=== PATIENT | female | born 1960 | race Caucasian/White ===

== ENCOUNTER 2016-11-23 10:22 | Emergency (ER) | payer MEDICAID, OTHER ==
[~2016-11-23] VITALS: Wt 72.7 kg
[2016-11-23] MEDS ORDERED: POLY10DR19 RIGHT EYE (10:59)
[2016-11-23] MEDS ORDERED: BEN25 PO (10:59)
[2016-11-23] MEDS ORDERED: FLUORESCEIN STRIP RIGHT EYE ONE (11:00)
[2016-11-23] MEDS ORDERED: TETRACAINE 0.5% 4 ML OPH RIGHT EYE ONE (11:00)
[2016-11-23 11:51] VITALS: BP 115/78; PULSE 78; RESP 18; TEMP 98.6
--- NOTE | 2016-11-23 12:24 | ERD ---
ER Documentation Chief Complaint Date/Time DATE: 11/23/16 TIME: 12:19 Chief Complaint SUDDEN R. EYE REDNESS AND SWELLING W BLURRY VISION HPI 55-year-old female comes emergency room department with right eye redness, swelling started approximately 30 minutes ago. She reports that this morning she was sitting on her couch watching television she felt pressure-like pain in her eye. She states that there is mild blurred vision, however no diplopia, no visual field deficits. She denies any curtain effect or visual disturbances. Patient does report that she was straining, her bowel movement 2 hours ago. She denies trauma. She denies foreign body entrance or foreign body sensation. ROS All systems reviewed and are negative except as per history of present illness. Medications Home Meds Active Scripts Diphenhydramine Hcl* (Benadryl*) 25 Mg Cap, 25 MG PO Q6, #30 CAP Prov:ANNMARIE WALKER PA-C 11/23/16 Polymyxin B Sulfate-TMP* (Polymyxin B-TMP Eye Drops*) 10 Ml Drops, 1 DROP RIGHT EYE QID for 7 Days, EA Prov:ANNMARIE WALKER PA-C 11/23/16 Allergies Allergies: Coded Allergies: No Known Allergy (Unverified , 11/23/16) PMhx/Soc History of Surgery: Yes (Ovarian tumor removal) Anesthesia Reaction: No Hx Neurological Disorder: No Hx Respiratory Disorders: No Hx Cardiac Disorders: No Hx Psychiatric Problems: No Hx Miscellaneous Medical Probl: No Hx Alcohol Use: No Hx Substance Use: No Hx Tobacco Use: No Smoking Status: Never smoker Physical Exam Vitals Vital Signs Date Time Temp Pulse Resp B/P Pulse Ox O2 Delivery O2 Flow Rate FiO2 11/23/16 11:51 98.6 78 18 115/78 98 Room Air 11/23/16 10:24 97.0 77 20 154/71 99 Physical Exam General: Well-developed, well-nourished. The patient appears in no acute distress. HEENT: Head is normocephalic, atraumatic. No scleral icterus. Eye Exam: Visual Acuity: 20/50, 20/40, 20/40 Visual Malin: Intact in all four quadrants bilaterally Lac ducts/glands: No swelling Lids w/ evertion: Normal, no foreign body Conj/Celestine: Ecchymosis of approximately 40% of the inferior aspect of the conjunctiva, there is injection, subconjunctival hemorrhage. Anterior Chamber: Clear Tonopen readings: 22, 27 Neck: Supple. Nontender. Lungs: Clear to auscultation. Normal air movement. Heart: Regular rate and rhythm. S1 and S2 are normal. No murmurs, gallops, or rubs. Abdomen: Nondistended. Extremities: No clubbing or cyanosis. Moving extremities x 4. No weakness. Neurologic: Alert and oriented 3. No focal deficits. Normal speech and gait. Skin: Normal turgor. No rash or lesions. Results 24 hrs Current Medications Medications (Trade) Dose Ordered Sig/Ashwini Route PRN Reason Start Time Stop Time Status Last Admin Dose Admin Tetracaine HCl (Tetracaine 0.5% Steri-Unit Kay) 1 drop ONCE ONCE RIGHT EYE 11/23/16 11:00 11/23/16 11:01 DC Fluorescein Sodium (Adlpy-Z-Yslda) 1 strip ONCE ONCE RIGHT EYE 11/23/16 11:00 11/23/16 11:01 DC Procedures/MDM 55-year-old female comes in ecchymosis of the right eye, there is associated subconjunctival hemorrhage and it was likely due to patient's history of straining on the toilet this morning. Examination does show chemosis with subconjunctival hemorrhage. Visual acuity is intact and pressures are normal. Wood lamp was not functioning at this time. She does not have any history of an abrasion, pain or any insidious factors associated. My suspicion for an ulcer, corneal abrasion, keratitis or uveitis is low. Additionally I doubt globe rupture. I also did consider retinal detachment however patient's visual acuity is intact, she does not have any history that is concerning including black curtain effect. This case was discussed with my supervising physician. We will be giving her Benadryl for the ecchymosis, and be given antibiotics prophylactically, including eyedrops. She was advised to recheck her eye in the next day with an executive director of nursing. Patient expresses verbal understanding and agrees. The case was reviewed and discussed with Dr. Love who agrees with the plan of care including labs, treatment, and advanced imaging as appropriate. Departure Diagnosis: Primary Impression: Chemosis Condition: Good Patient Instructions: Conjunctivitis, Allergic Referrals: [facility] Hours: Mon - Fri 9:00 AM - 5:00 PM Additional Instructions: la oftalmologa Specialist:Usted tiene maximus condicin mdica que requiere que eddi a un especialista dentro de los prximos 1-2 pina.POR FAVOR,CON LARKIN SEGUIMIENTO DE PRIMARIA PHSICIAN refferal. SI USTED NO TIENE UN MDICO GENERAL Y / O USTED NO PUEDE PAGAR lin a un mdico,los siguientes haines RECURSOS sido suministrado a usted. ES LARKIN RESPONSABILIDAD PARA SER VISTOS POR EL ESPECIALISTA: ANNMARIE WALKER PA-C Nov 23, 2016 12:24
== END 2016-11-23 11:51 | disposition home or self-care (01) ==
LOC: FTE 10:22
DX: H11.421 Conjunctival edema, right eye (principal); Z85.43 Personal history of malignant neoplasm of ovary
CPT/HCPCS: Z7502; Z7610; 99283